=== PATIENT | male | born 1975 | race African-American/Black ===

== ENCOUNTER 2017-08-02 05:49 | Inpatient (IN) | payer OTHER ==
[2017-08-02] MEDS ORDERED: ASPIRIN PO ONE (06:04)
[2017-08-02 06:36] LABS: Basophils # (Auto) 0.1 K/mm3 (0.0-0.1); Basophils % (Auto) 0.8 % (0.0-1.8); Eosinophils # (Auto) 0.1 K/mm3 (0.0-0.4); Eosinophils % (Auto) 1.7 % (0.0-4.3); Hematocrit 43.1 % (35.5-45.6); Hemoglobin 14.5 gm/dl (11.8-15.2); Lymphocytes # (Auto) 1.7 K/mm3 (1.2-5.4); Lymphocytes % (Auto) 19.3 % (13.4-35.0); Mean Corpuscular HGB Conc 34 % (32-34); Mean Corpuscular Hemoglobin 32 pg (28-32); Mean Corpuscular Volume 94 fl (84-94); Monocytes # (Auto) 0.5 K/mm3 (0.0-0.8); Red Blood Count 4.58 M/mm3 (3.65-5.03)
[2017-08-02 06:42] LABS: Platelet Count 229 K/mm3 (140-440)
[2017-08-02 06:48] LABS: BUN/Creatinine Ratio 25; Blood Urea Nitrogen 15 mg/dL (9-20); Calcium 8.6 mg/dL (8.4-10.2); Hemolysis Index 276
[2017-08-02] MEDS ORDERED: PEPCID IV ONE (07:00)
[2017-08-02] MEDS ORDERED: NITRO-BID 2% TP ONE (07:00)
[2017-08-02] MEDS ORDERED: ZOFRAN IV ONE (07:00)
[2017-08-02] MEDS ORDERED: MORPHINE IV ONE (07:00)
--- NOTE | 2017-08-02 07:14 | XRay Report ---
FINAL REPORT EXAM: XR CHEST 1V AP HISTORY: cp TECHNIQUE: A portable upright view the chest was submitted. FINDINGS: Heart size and mediastinum appear normal. The lungs are clear. Pleural fluid is not seen. There are EKG leads overlying the chest wall. The bones and soft tissues otherwise appear well maintained. IMPRESSION: No active chest disease.
[2017-08-02 07:25] LABS: Chol/HDL Ratio 3.68 %; HDL Cholesterol 44 mg/dL (40-59); LDL Cholesterol,Direct 98 mg/dL (50-130)
--- NOTE | 2017-08-02 07:50 | Emergency Department Report ---
ED Chest Pain HPI - General Chief Complaint: Chest Pain Stated Complaint: CHEST PAIN Time Seen by Provider: 08/02/17 06:53 Source: patient, family, EMS Mode of arrival: Ambulatory Limitations: Language Barrier - History of Present Illness Initial Comments: 41-year-old male with a past medical history of elevated cholesterol and smoking history presents to the hospital complaints of chest pain. Midsternal chest pain described as something sitting on his chest, rate of 7/10 and has been intermittent since 2 AM. Pain woke him up acutely at 3:45 AM. Positive associated diaphoresis. Patient denies nausea, vomiting, or shortness of breath. Patient received aspirin and sublingual nitroglycerin in route to the hospital without improvement. Denies previous history of stress test. Severity scale (0 -10): 8 - Related Data Allergies Allergy/AdvReac Type Severity Reaction Status Date / Time No Known Allergies Allergy Unverified 08/02/17 05:58 Heart Score - HEART Score History: Slightly suspicious EKG: Non-specific Age: < 45 Risk factors: 1-2 risk factors Troponin: 1-3x normal limit HEART Score: 3 ED Review of Systems ROS: Stated complaint: CHEST PAIN Other details as noted in HPI Comment: All other systems reviewed and negative Other: Constitutional: No fevers chills Eyes: No eye pain visual changes ENT: No ear pain or throat pain Neck: Denies pain Respiratory: Denies cough wheezing shortness of breath Cardiovascular: Deniespalpitations, syncope GI: Denies abdominal pain : Denies dysuria Musculoskeletal: Denies back pain, joint swelling Skin: Denies rash, lesions, erythema Neurologic: Denies headache, numbness, weakness Psychiatric: Denies suicidal ideation, hallucinations ED Past Medical Hx - Past Medical History Previous Medical History?: Yes Additional medical history: High Cholesterol - Surgical History Past Surgical History?: No - Social History Smoking Status: Never Smoker Substance Use Type: Prescribed ED Physical Exam - General Limitations: Language Barrier - Other Other exam information: General: No limitations, patient is alert in no acute distress Head exam: Atraumatic, normocephalic Eyes exam: Normal appearance ENT: Moist mucous membrane, normal oropharynx Neck exam: Normal inspection, full range of motion, no meningismus nontender Respiratory exam: Clear to auscultation bilateral, no wheezes, rales, crackles Cardiovascular: Normal rate and rhythm, normal heart sounds. Chest wall nontender Abdomen: Soft, nondistended, and nontender, with normal bowel sounds, no rebound, or guarding Extremity: Full range of motion normal inspection no deformity, no calf tenderness or edema Back: Normal Inspection, full range of motion, no tenderness Neurologic: Alert, oriented x3, cranial nerves intact, no motor or sensory deficit Psychiatric: normal affect, normal mood Skin: Warm, dry, intact ED Course Vital Signs 08/02/17 08/02/17 08/02/17 06:04 06:14 06:15 Temperature 97.9 F Pulse Rate 78 72 Respiratory 15 18 Rate Blood Pressure O2 Sat by Pulse 100 Oximetry 08/02/17 08/02/17 06:30 06:41 Temperature Pulse Rate 69 71 Respiratory 18 15 Rate Blood Pressure 140/93 140/93 O2 Sat by Pulse 100 100 Oximetry - Reevaluation(s) Reevaluation #1: 08/02/17 07:53 Patient treated in the ED with nitroglycerin, morphine, and Zofran PEACE score - Peace Score Age > 65: (0) No Aspirin use within the Past 7 Days: (0) No 3 or more CAD Risk Factors: (1) Yes 2 or more Angina events in past 24 hrs: (1) Yes Known CAD with more than 50% Stenosis: (0) No Elevated Cardiac Markers: (1) Yes ED Medical Decision Making - Lab Data Result diagrams: 08/02/17 06:22 08/02/17 06:22 Lab Results 08/02/17 08/02/17 Range/Units 06:22 06:22 WBC 8.9 (4.5-11.0) K/mm3 RBC 4.58 (3.65-5.03) M/mm3 Hgb 14.5 (11.8-15.2) gm/dl Hct 43.1 (35.5-45.6) % MCV 94 (84-94) fl MCH 32 (28-32) pg MCHC 34 (32-34) % RDW 14.0 (13.2-15.2) % Plt Count 229 (140-440) K/mm3 Lymph % (Auto) 19.3 (13.4-35.0) % [place] % (Auto) 6.0 (0.0-7.3) % Eos % (Auto) 1.7 (0.0-4.3) % Baso % (Auto) 0.8 (0.0-1.8) % Lymph # 1.7 (1.2-5.4) K/mm3 [place] # 0.5 (0.0-0.8) K/mm3 Eos # 0.1 (0.0-0.4) K/mm3 Baso # 0.1 (0.0-0.1) K/mm3 Seg Neutrophils % 72.2 H (40.0-70.0) % Seg Neutrophils # 6.4 (1.8-7.7) K/mm3 Sodium 138 (137-145) mmol/L Potassium 5.6 H (3.6-5.0) mmol/L Chloride 100.9 (98-107) mmol/L Carbon Dioxide 21 L (22-30) mmol/L Anion Gap 22 mmol/L BUN 15 (9-20) mg/dL Creatinine 0.6 L (0.8-1.5) mg/dL Estimated GFR > 60 ml/min BUN/Creatinine Ratio 25 % Glucose 145 H (75-100) mg/dL Calcium 8.6 (8.4-10.2) mg/dL Troponin T 0.031 H (0.00-0.029) ng/mL Triglycerides 103 (2-149) mg/dL Cholesterol 162 (50-199) mg/dL LDL Cholesterol Direct 98 (50-130) mg/dL HDL Cholesterol 44 (40-59) mg/dL Cholesterol/HDL Ratio 3.68 % - EKG Data -: EKG Interpreted by [place] EKG shows normal: sinus rhythm, axis (64), QRS complexes (80), ST-T waves (Q waves anterior peaked T waves elevation without reciprocal change) Rate: normal - EKG Data When compared to previous EKG there are: previous EKG unavailable - Radiology Data Radiology results: report reviewed (cxr read by radiology: alicia) - Medical Decision Making Plan to admit patient to hospital for cardiac workup. Patient is slight troponin elevation and cardiac risk factors with no previous history of CAD workup Patient's potassium 5.6 but hemolyzed. Repeat pending. Hospitalist informed for admission - Differential Diagnosis [place], unstable angina PE, atypical chest pain, GERD Critical Care Time: No Critical care attestation.: If time is entered above; I have spent that time in minutes in the direct care of this critically ill patient, excluding procedure time. ED Disposition Clinical Impression: Chest pain, Elevated troponin, Smoker Disposition: -09 OP ADMIT IP TO THIS HOSP Is pt being admited?: Yes Condition: Stable Time of Disposition: 07:57 ([place]/hospitalist)
[2017-08-02] MEDS ORDERED: KIONEX PR ONE (08:00)
[2017-08-02] MEDS ORDERED: BABY ASPIRIN PO STA (08:15)
--- NOTE | 2017-08-02 08:53 | Consultation ---
History of Present Illness Consult date: 08/02/17 Requesting physician: KAILEY REMY Consult reason: chest pain History of present illness: The patient is a 41 year old male with a history of hyperlipidemia and tobacco abuse who presented with complaints of substernal chest pressure that started this morning around 2 am. He states the pain has been waxing and waning since that time, currently 7/10. Associated with diaphoresis. No shortness of breath, nausea or vomiting. First troponin is 0.031. No previous ischemic evaluation. Past History Past Medical History: hyperlipidemia Past Surgical History: No surgical history Social history: , smoking (1/2 PPD). denies: alcohol abuse, prescription drug abuse Family history: no significant family history Medications and Allergies Allergies Allergy/AdvReac Type Severity Reaction Status Date / Time No Known Allergies Allergy Unverified 08/02/17 05:58 Active Meds: Active Medications Aspirin (Baby Aspirin) 81 mg PO QDAY AJAY Atorvastatin Calcium (Lipitor) 40 mg PO QHS AJAY Heparin Sodium (Porcine) (Heparin 10,000 Units/10 Ml) 3,000 unit 60 unit/kg ( 3000 unit) IV ONCE ONE Stop: 08/02/17 08:49 Sodium Chloride (Nacl 0.9% 500 Ml) 500 mls @ 50 mls/hr IV DIRECT AJAY Stop: 08/02/17 18:59 Heparin Sodium/Sodium Chloride (Heparin/ 0.45% Nacl-25,000 Unit/500 Ml) 25,000 unit in 500 mls @ 15.105 mls/hr IV TITRATE AJAY; 15 UNITS/KG/HR PRN Reason: Protocol Nitroglycerin/Dextrose (Tridil Drip 50mg/250ml) 50 mg in 250 mls @ 3 mls/hr IV TITR AJAY; 10 MCG/MIN PRN Reason: Protocol Review of Systems Constitutional: no fever, no chills Ears, nose, mouth and throat: no nasal congestion, no nasal discharge, no sinus pressure Cardiovascular: chest pain, no orthopnea, no palpitations, no shortness of breath Respiratory: no cough, no congestion, no wheezing Gastrointestinal: no abdominal pain, no nausea, no vomiting, no diarrhea Genitourinary Male: no dysuria, no hematuria Musculoskeletal: no neck stiffness, no neck pain Integumentary: no rash, no pruritis Neurological: no parathesias, no numbness, no tingling, no headaches Endocrine: no cold intolerance, no heat intolerance Hematologic/Lymphatic: no easy bruising, no easy bleeding Allergic/Immunologic: no urticaria, no wheezing Physical Examination Last Vital Signs Temp 97.9 F 08/02/17 06:04 Pulse 80 08/02/17 08:01 Resp 14 08/02/17 08:00 BP 119/82 08/02/17 08:01 Pulse Ox 100 08/02/17 06:41 General appearance: mild distress HEENT: Positive: PERRL, Normocephaly, Mucus Membranes Moist Neck: Positive: neck supple, trachea midline Cardiac: Positive: Reg Rate and Rhythm, S1/S2 Lungs: Positive: clear to auscultation Neuro: Positive: Grossly Intact Abdomen: Positive: Soft, Active Bowel Sounds. Negative: Tender Skin: Positive: Clear. Negative: Rash Extremities: Present: normal. Absent: edema Results 08/02/17 09:14 08/02/17 07:58 Lipids 08/02/17 Range/Units 06:22 Triglycerides 103 (2-149) mg/dL Cholesterol 162 (50-199) mg/dL HDL Cholesterol 44 (40-59) mg/dL Cholesterol/HDL Ratio 3.68 % CBC 08/02/17 Range/Units 06:22 WBC 8.9 (4.5-11.0) K/mm3 RBC 4.58 (3.65-5.03) M/mm3 Hgb 14.5 (11.8-15.2) gm/dl Hct 43.1 (35.5-45.6) % Plt Count 229 (140-440) K/mm3 Lymph # 1.7 (1.2-5.4) K/mm3 [place] # 0.5 (0.0-0.8) K/mm3 Eos # 0.1 (0.0-0.4) K/mm3 Baso # 0.1 (0.0-0.1) K/mm3 Comprehensive Metabolic Panel 08/02/17 08/02/17 Range/Units 06:22 07:58 Sodium 138 (137-145) mmol/L Potassium 5.6 H 4.0 D (3.6-5.0) mmol/L Chloride 100.9 (98-107) mmol/L Carbon Dioxide 21 L (22-30) mmol/L BUN 15 (9-20) mg/dL Creatinine 0.6 L (0.8-1.5) mg/dL Glucose 145 H (75-100) mg/dL Calcium 8.6 (8.4-10.2) mg/dL - Imaging and Cardiology EKG: image reviewed EKG interpretations - Telemetry EKG Rhythm: Sinus Rhythm - EKG Sinus rhythms and dysrhythmias: sinus rhythm Myocardial infarction: anterior WA (acute or rec, anterior WA (old age or i Assessment and Plan Assessment: NSTEMI Hyperlipidemia Tobacco abuse Plan: Initiate heparin and nitro gtts. Will proceed with [facility] this morning. Risks, benefits and alternatives were discussed with the patient who agrees to proceed. The patient has been seen in conjunction with Dr. Clark who agrees with the assessment and plan of care.
[2017-08-02] MEDS ORDERED: TRIDIL DRIP 50MG/250ML 50 MG/250 ML BOTTLE IV SCH (09:00)
[2017-08-02] MEDS ORDERED: HEPARIN ONE (09:01)
[2017-08-02 09:31] LABS: Hematocrit 45.5 % (35.5-45.6)
[2017-08-02] MEDS ORDERED: NACL 0.9% 1000 ML 1,000 ML ONE (09:42)
[2017-08-02 09:44] LABS: INR 0.91 (0.87-1.13)
[2017-08-02 09:45] LABS: Partial Thromboplastin Time 40.5 Sec. (24.2-36.6)
[2017-08-02] MEDS ORDERED: XYLOCAINE 2% INFILTRATI ONE (09:58)
[2017-08-02] MEDS ORDERED: HEPARIN/NS 5000 UNIT/500ML(CATH LAB) 1,000 ML IR ONE (09:58)
[2017-08-02] MEDS ORDERED: CALAN ONE (09:58)
[2017-08-02] MEDS ORDERED: NITROGLYCERIN SYRINGE 0 ML ONE (09:58)
[2017-08-02] MEDS ORDERED: SUBLIMAZE ONE (09:59)
[2017-08-02] MEDS ORDERED: VERSED ONE (09:59)
[2017-08-02] MEDS ORDERED: NACL 0.9% 500 ML 500 ML IV SCH (10:30)
[2017-08-02] MEDS: HEPARIN/ 0.45% NACL-25,000 UNIT/500 ML 25,000 UNIT/500 ML BAG IV SCH (10:30)
[2017-08-02] MEDS ORDERED: HEPARIN 10,000 UNITS/10 ML IV ONE (10:30)
--- NOTE | 2017-08-02 12:01 | Cardiac Catherization Report ---
LEFT HEART CATHETERIZATION CLINICAL INFORMATION: The patient is a 41-year-old [place] gentleman with history of hyperlipidemia with no history of hypertension or diabetes mellitus. Started having chest pain last night around 2:00, he presented to the Emergency Room this morning and EKG showed some ST-T changes in the anterior leads consistent with ischemia versus injury. The patient was started on IV heparin and IV nitroglycerin and the chest pain improved. Because of his intermittent chest pain of many hours duration, he was taken to the catheterization laboratory on an urgent basis. The patient is pain free at the time of presentation to the catheterization laboratory. He is on IV nitroglycerin and IV heparin. The patient's blood pressure has been stable with blood pressure of 118/75 with heart rate of 80 beats per minute, sinus rhythm. I explained to the patient about the procedure, potential complications, and alternatives of therapy available. DESCRIPTION OF PROCEDURE: The patient is willing to proceed with coronary angiography and intervention if indicated. The patient was brought to the catheterization laboratory in a fasting condition. The right wrist area and forearm thoroughly cleansed with Betadine solution. Sterile drapes were applied. Local anesthesia was achieved using 2% Xylocaine. Right radial artery puncture was made using 21-gauge arterial puncture needle. Subsequently, a 5-Jordanian sheath was introduced. A 5-Jordanian multipurpose catheter was used to obtain the angiograms of the left coronary artery, right coronary artery and left ventriculogram done in MONSON projection in multiple views. At the end of the procedure, catheter and sheath were removed. The patient was noted to have significant LV dysfunction and triple vessel disease. Considering the above angiographic picture, would recommend aortocoronary bypass surgery. At the end of the procedure, the patient is pain free, vital signs have been stable. No untoward complications were noted. Following findings were noted. HEMODYNAMICS: 1. Aortic pressure 118/75, left ventricular pressure 116/23. No gradient across the aortic valve. Estimated ejection fraction of 30%-35%. 2. Left ventriculogram done in MONSON projection showed almost akinesis of the distal half of the anterior wall and apex. Vessels parts are moving normally. Ejection fraction 30%-35%. No significant mitral regurgitation noted. 3. Left coronary artery arises normally from left coronary cusp, left main without significant disease. LAD in the mid part showed very tight 95%-98% lesion extending into the diagonal branch, which is a fairly large vessel. Distal LAD curves around the apex and diagonal branch fairly large without significant disease. Circumflex artery represented by a large marginal branch shows 80% long lesion which bifurcates into two marginal branches. Circumflex artery and the AV groove without significant disease. Distal to the above-mentioned marginal lesion, these vessels are medium sized and bypassable. 4. Right coronary artery dominant vessel shows mild disease proximally and PDA which is greatly large vessel shows 80%-90% focal ostial lesion. PDA without significant disease. FINAL IMPRESSION: Left ventricular dysfunction, ejection fraction 30%-35% with anterior wall and apical almost akinesis along with triple vessel disease involving the bifurcation lesion of the mid LAD diagonal and also bifurcation lesion of the marginal branch, which are bypassable and large PDA is also bypassable.Considering he is chest pain free, we would continue medical therapy and we will arrange for aortic coronary bypass surgery as soon as possible. Discussed with the patient who belongs to [place] and we will check with the [place] to arrange for bypass surgery. No untoward complications were noted. He will be continued on IV nitroglycerin and IV heparin. JOB# [id number] PRISCA/JO-ANN PALM
--- NOTE | 2017-08-02 12:18 | History and Physical Report ---
History of Present Illness Date of examination: 08/02/17 Chief complaint: Chest pain History of present illness: 41-year-old male with past medical history significant for hyperlipidemia presented to the emergency department complaining of substernal chest pain that started around 1 AM this morning. Patient couldn't characterize the pain but he said it hurts, 10 out of 10 in intensity, come and goes, associated with sweating, no radiation, no alleviating or aggravating factors identified. Patient denied any shortness of breath, palpitation, leg swelling, nausea, vomiting. Patient is smoker and family history of heart attack [Father]. REVIEW OF SYSTEMS: GENERAL: no weight change, no fatigue, no fever HEAD: no head ache EYES: no blurry vision, no acute visual loss EARS: no hearing loss, no discharge, no earache NOSE: no stuffiness, no sneezing, no discharge MOUTH, THROAT AND NECK: no bleeding gums, no sore throat, no swollen neck CARDIAC: As stated in the HPI. RESPIRATORY: no shortness of breath, no wheeze, no cough, no sputum, no hemoptysis, no asthma GI: no decreased appetite, no nausea, no vomiting, no dysphagia, no diarrhea, no constipation, no abdominal pain URINARY: no change in frequency, no urgency, no polyuria, no hematuria, no incontinence MUSCULOSKELETAL: no muscle weakness, no pain, no joint stiffness NEUROLOGIC: no loss of sensation/numbness, no tingling, no tremors, no weakness/ paralysis HEMATOLOGIC: no anemia, no easy bruising SKIN: no rashes ENDOCRINE: no heat/cold intolerance, no polyuria, no polydipsia, no thyroid problems, no diabetes PSYCHIATRIC: no anxiety, no depression, no suicidal ideations Past History Past Medical History: hyperlipidemia Past Surgical History: No surgical history Social history: , smoking (1/2 PPD). denies: alcohol abuse, prescription drug abuse Family history: no significant family history Medications and Allergies Allergies Allergy/AdvReac Type Severity Reaction Status Date / Time No Known Allergies Allergy Unverified 08/02/17 05:58 Active Meds: Active Medications Aspirin (Baby Aspirin) 81 mg PO QDAY AJAY Atorvastatin Calcium (Lipitor) 40 mg PO QHS AJAY Sodium Chloride (Nacl 0.9% 500 Ml) 500 mls @ 50 mls/hr IV DIRECT AJAY Stop: 08/02/17 20:29 Heparin Sodium/Sodium Chloride (Heparin/ 0.45% Nacl-25,000 Unit/500 Ml) 25,000 unit in 500 mls @ 15 mls/hr IV TITRATE AJAY; 750 UNITS/HR PRN Reason: Protocol Last Admin: 08/02/17 10:30 Dose: 0 mls Nitroglycerin/Dextrose (Tridil Drip 50mg/250ml) 50 mg in 250 mls @ 3 mls/hr IV TITR AJAY; 10 MCG/MIN PRN Reason: Protocol Last Admin: 08/02/17 09:29 Dose: 10 mcg/min, 3 mls/hr Exam - Physical Exam Narrative exam: Not in cardiopulmonary distress. The patient appeared well nourished and normally developed. Vital signs as documented. Head exam is unremarkable. No scleral icterus . Neck is without jugular venous distension, thyromegaly, or carotid bruits. Lungs are clear to auscultation. Cardiac exam reveals regular rate and Rhythm. First and second heart sounds normal. No murmurs, rubs or gallops. Abdominal exam reveals normal bowel sounds, no masses, no organomegaly and no aortic enlargement. Extremities are nonedematous and both femoral and pedal pulses are normal. HEADER DOCK: Alert and oriented 3. No focal weakness. - Constitutional Vitals: Temp Pulse Resp BP Pulse Ox 98.3 F 82 20 105/63 99 08/02/17 10:48 08/02/17 11:15 08/02/17 11:15 08/02/17 11:15 08/02/17 11:15 Results - Labs CBC & Chem 7: 08/02/17 09:14 08/02/17 07:58 Labs: Laboratory Last Values WBC 8.9 K/mm3 (4.5-11.0) 08/02/17 06:22 RBC 4.58 M/mm3 (3.65-5.03) 08/02/17 06:22 Hgb 15.0 gm/dl (11.8-15.2) 08/02/17 09:14 Hct 45.5 % (35.5-45.6) 08/02/17 09:14 MCV 94 fl (84-94) 08/02/17 06:22 MCH 32 pg (28-32) 08/02/17 06:22 MCHC 34 % (32-34) 08/02/17 06:22 RDW 14.0 % (13.2-15.2) 08/02/17 06:22 Plt Count 262 K/mm3 (140-440) 08/02/17 09:14 Lymph % (Auto) 19.3 % (13.4-35.0) 08/02/17 06:22 [place] % (Auto) 6.0 % (0.0-7.3) 08/02/17 06:22 Eos % (Auto) 1.7 % (0.0-4.3) 08/02/17 06:22 Baso % (Auto) 0.8 % (0.0-1.8) 08/02/17 06:22 Lymph # 1.7 K/mm3 (1.2-5.4) 08/02/17 06:22 [place] # 0.5 K/mm3 (0.0-0.8) 08/02/17 06:22 Eos # 0.1 K/mm3 (0.0-0.4) 08/02/17 06:22 Baso # 0.1 K/mm3 (0.0-0.1) 08/02/17 06:22 Seg Neutrophils % 72.2 % (40.0-70.0) H 08/02/17 06:22 Seg Neutrophils # 6.4 K/mm3 (1.8-7.7) 08/02/17 06:22 PT 12.7 Sec. (12.2-14.9) 08/02/17 09:14 INR 0.91 (0.87-1.13) 08/02/17 09:14 APTT 40.5 Sec. (24.2-36.6) H 08/02/17 09:14 Sodium 138 mmol/L (137-145) 08/02/17 06:22 Potassium 4.0 mmol/L (3.6-5.0) D 08/02/17 07:58 Chloride 100.9 mmol/L (98-107) 08/02/17 06:22 Carbon Dioxide 21 mmol/L (22-30) L 08/02/17 06:22 Anion Gap 22 mmol/L 08/02/17 06:22 BUN 15 mg/dL (9-20) 08/02/17 06:22 Creatinine 0.6 mg/dL (0.8-1.5) L 08/02/17 06:22 Estimated GFR > 60 ml/min 08/02/17 06:22 BUN/Creatinine Ratio 25 % 08/02/17 06:22 Glucose 145 mg/dL (75-100) H 08/02/17 06:22 Calcium 8.6 mg/dL (8.4-10.2) 08/02/17 06:22 Troponin T 0.255 ng/mL (0.00-0.029) H* D 08/02/17 09:14 Triglycerides 103 mg/dL (2-149) 08/02/17 06:22 Cholesterol 162 mg/dL (50-199) 08/02/17 06:22 LDL Cholesterol Direct 98 mg/dL (50-130) 08/02/17 06:22 HDL Cholesterol 44 mg/dL (40-59) 08/02/17 06:22 Cholesterol/HDL Ratio 3.68 % 08/02/17 06:22 Assessment and Plan Assessment and plan: ACS, NSTEMI - elevated cardiac enzymes - Cardiac cath showed triple vessel disease, with left ventricular dysfunction EF of 30-35% - Patient is on aspirin, heparin drip - Patient is going to be transferred to [facility], accepted by Dr. Mike Burton Tobacco abuse - Counselled about cessation of smoking Hyperlipidemia - Continue the study Disposition - will be transferred out to [facility] - Cardiology arranged the transfer VTE prophylaxis?: Chemical Plan of care discussed with patient/family: Yes
--- NOTE | 2017-08-02 12:21 | Discharge Summary ---
Providers - Providers Date of discharge: 08/02/17 Attending physician: DENISSE BHANDARI 08/02/17 Consult to Cardiac Rehabilitation [CONS] Routine Reason For Exam: Phase 1 08/02/17 07:55 Consult to Cardiology [CONS] Routine Consulting Provider: GENIE HECK Reason For Exam: NSTEMI Primary care physician: ABDOUL PARKER Hospitalization Reason for admission: NSTEMI, triple-vessel disease, left ventricular dysfunction Condition: Stable Procedures: cardiac cath: showed triple vessel disease, left ventricular dysfunction. Hospital course: 41-year-old male with past medical history significant for hyperlipidemia presented to the emergency department complaining of substernal chest pain that started around 1 AM this morning. Patient couldn't characterize the pain but he said it hurts, 10 out of 10 in intensity, come and goes, associated with sweating, no radiation, no alleviating or aggravating factors identified. Patient denied any shortness of breath, palpitation, leg swelling, nausea, vomiting. Patient is smoker and family history of heart attack [Father]. Cardiac cath was done and showed triple-vessel disease with left ventricular dysfunction. Patient was put on heparin, aspirin, statin and cardiology arranged to transfer the patient [facility] and accepted by Dr Mike Burton. Patient is hemodynamically stable for transfer. Disposition: [id number][facility]TX-[id number] Time spent for discharge: 31 minutes - Discharge Diagnoses (1) NSTEMI (non-ST elevated myocardial infarction) Status: Acute (2) Triple vessel coronary artery disease Status: Acute (3) Smoker Status: Acute Core Measure Documentation - Palliative Care Palliative Care/ Comfort Measures: Not Applicable - Core Measures Any of the following diagnoses?: heart failure - Acute OR Discharge Requirements Aspirin at discharge: Yes ARIADNE/ARB for LVSD if EF <40%: No Reason for no ARIADNE/ARB: Hypotension Reason for no beta arias on DC: Hypotension Statin for LDL = or >100 mg/dl on DC: Yes - Heart Failure Discharge Requirements ARIADNE/ARB for LVSD if EF <40%: No Reason for no ARIADNE/ARB: Hypotension (BP is marginal, and patient is going to be transferred out) Beta arias at discharge: Yes Exam - Physical Exam Narrative exam: Not in cardiopulmonary distress. The patient appeared well nourished and normally developed. Vital signs as documented. Head exam is unremarkable. No scleral icterus . Neck is without jugular venous distension, thyromegaly, or carotid bruits. Lungs are clear to auscultation. Cardiac exam reveals regular rate and Rhythm. First and second heart sounds normal. No murmurs, rubs or gallops. Abdominal exam reveals normal bowel sounds, no masses, no organomegaly and no aortic enlargement. Extremities are nonedematous and both femoral and pedal pulses are normal. [employer]: Alert and oriented 3. No focal weakness. - Constitutional Vitals: Temp Pulse Resp BP Pulse Ox 98.3 F 82 20 105/63 99 08/02/17 10:48 08/02/17 11:15 08/02/17 11:15 08/02/17 11:15 08/02/17 11:15 Plan Activity: no restrictions Weight Bearing Status: Full Weight Bearing Diet: low fat, low cholesterol Follow up with: ABDOUL PARKER MD [Primary Care Provider] - 7 Days
--- NOTE | 2017-08-02 14:16 | Event Note ---
Date: 08/02/17 Cath revealed triple vessel disease, EF 30%. Patient will be transferred to [facility] under the care of Dr. Mike Burton for CABG.
[2017-08-02 16:54] LABS: Creatine Kinase MB 217.9 ng/mL (0.0-4.0)
[2017-08-02] MEDS ORDERED: NACL 0.9% 500 ML 500 ML ONE (19:59)
[2017-08-03] MEDS ORDERED: BABY ASPIRIN PO SCH (10:00)
[2017-08-03] MEDS ORDERED: NACL 0.9% 1000 ML 1,000 ML ONE (10:51)
[2017-08-03] MEDS ORDERED: NACL 0.9% 1000 ML 1,000 ML IV SCH (11:00)
--- NOTE | 2017-08-03 11:27 | Progress Note ---
Assessment and Plan Assessment: NSTEMI Triple vessel CAD Cardiomyopathy EF 30-35% Hyperlipidemia Tobacco abuse Plan: Continue nitro and heparin gtts. Patient remains chest pain free. Awaiting transfer to [facility] under the care of Dr. Mike Burton. The patient has been seen in conjunction with Dr. Rincon who agrees with the assessment and plan of care. Subjective Date of service: 08/03/17 Principal diagnosis: NSTEMI, triple vessel CAD Interval history: Patient remains in mill laborer recovery area, awaiting bed at [facility]. No chest pain or shortness of breath. Objective Last Vital Signs Temp 98.7 F 08/03/17 04:00 Pulse 76 08/03/17 10:00 Resp 17 08/03/17 10:00 BP 96/60 08/03/17 10:00 Pulse Ox 100 08/03/17 10:00 - Physical Examination General: No Apparent Distress HEENT: Positive: PERRL, Normocephaly, Mucus Membranes Moist Neck: Positive: neck supple, trachea midline Cardiac: Positive: Reg Rate and Rhythm, S1/S2 Lungs: Positive: clear to auscultation Neuro: Positive: Grossly Intact Abdomen: Positive: Soft, Active Bowel Sounds. Negative: Tender Skin: Positive: Clear. Negative: Rash Extremities: Present: normal. Absent: edema - Labs and Meds Cardiac Enzymes 08/02/17 Range/Units 16:30 CK-MB (CK-2) 217.9 H (0.0-4.0) ng/mL - Imaging and Cardiology EKG: image reviewed - Telemetry EKG Rhythm: Sinus Rhythm - EKG Sinus rhythms and dysrhythmias: sinus rhythm Myocardial infarction: anterior [place] (acute or rec, anterior [place] (old age or i
[2017-08-03 12:03] VITALS: BP 95/62
[2017-08-03] MEDS ORDERED: HEPARIN/ 0.45% NACL-25,000 UNIT/500 ML 0 UNIT/0 ML BAG ONE (13:08)
[2017-08-03] MEDS: HEPARIN/ 0.45% NACL-25,000 UNIT/500 ML 25,000 UNIT/500 ML BAG IV SCH (13:14)
--- NOTE | 2017-08-03 13:43 | Progress Note ---
Assessment and Plan Assessment and plan: ACS, NSTEMI - elevated cardiac enzymes - Cardiac cath showed triple vessel disease, with left ventricular dysfunction EF of 30-35% - Patient is on aspirin, heparin drip - Patient is going to be transferred to [facility], accepted by Dr. Mike Burton Tobacco abuse - Counselled about cessation of smoking Hyperlipidemia - Continue the statin. Disposition -Pending transfer to [facility]. - Patient Problems (1) NSTEMI (non-ST elevated myocardial infarction) Current Visit: Yes Status: Acute (2) Triple vessel coronary artery disease Current Visit: Yes Status: Acute (3) Smoker Current Visit: Yes Status: Acute History Interval history: Patient was seen and evaluated this morning, patient is chest pain-free. Hospitalist Physical - Physical exam Narrative exam: Not in cardiopulmonary distress. The patient appeared well nourished and normally developed. Vital signs as documented. Head exam is unremarkable. No scleral icterus . Neck is without jugular venous distension, thyromegaly, or carotid bruits. Lungs are clear to auscultation. Cardiac exam reveals regular rate and Rhythm. First and second heart sounds normal. No murmurs, rubs or gallops. Abdominal exam reveals normal bowel sounds, no masses, no organomegaly and no aortic enlargement. Extremities are nonedematous and both femoral and pedal pulses are normal. PSYCHIATRIC CLINICIAN: Alert and oriented 3. No focal weakness. - Constitutional Vitals: Temp Pulse Resp BP Pulse Ox 98.7 F 75 17 95/62 100 08/03/17 04:00 08/03/17 12:00 08/03/17 12:00 08/03/17 12:00 08/03/17 12:00 General appearance: Present: mild distress Results - Labs CBC & Chem 7: 08/02/17 09:14 08/02/17 07:58 Labs: Laboratory Last Values WBC 8.9 K/mm3 (4.5-11.0) 08/02/17 06:22 RBC 4.58 M/mm3 (3.65-5.03) 08/02/17 06:22 Hgb 15.0 gm/dl (11.8-15.2) 08/02/17 09:14 Hct 45.5 % (35.5-45.6) 08/02/17 09:14 MCV 94 fl (84-94) 08/02/17 06:22 MCH 32 pg (28-32) 08/02/17 06:22 MCHC 34 % (32-34) 08/02/17 06:22 RDW 14.0 % (13.2-15.2) 08/02/17 06:22 Plt Count 262 K/mm3 (140-440) 08/02/17 09:14 Lymph % (Auto) 19.3 % (13.4-35.0) 08/02/17 06:22 Frio % (Auto) 6.0 % (0.0-7.3) 08/02/17 06:22 Eos % (Auto) 1.7 % (0.0-4.3) 08/02/17 06:22 Baso % (Auto) 0.8 % (0.0-1.8) 08/02/17 06:22 Lymph # 1.7 K/mm3 (1.2-5.4) 08/02/17 06:22 Frio # 0.5 K/mm3 (0.0-0.8) 08/02/17 06:22 Eos # 0.1 K/mm3 (0.0-0.4) 08/02/17 06:22 Baso # 0.1 K/mm3 (0.0-0.1) 08/02/17 06:22 Seg Neutrophils % 72.2 % (40.0-70.0) H 08/02/17 06:22 Seg Neutrophils # 6.4 K/mm3 (1.8-7.7) 08/02/17 06:22 PT 12.7 Sec. (12.2-14.9) 08/02/17 09:14 INR 0.91 (0.87-1.13) 08/02/17 09:14 APTT 40.5 Sec. (24.2-36.6) H 08/02/17 09:14 Heparin Anti-Xa Level 0.82 U.I./ml (0.3-0.7) H 08/03/17 04:55 Sodium 138 mmol/L (137-145) 08/02/17 06:22 Potassium 4.0 mmol/L (3.6-5.0) D 08/02/17 07:58 Chloride 100.9 mmol/L (98-107) 08/02/17 06:22 Carbon Dioxide 21 mmol/L (22-30) L 08/02/17 06:22 Anion Gap 22 mmol/L 08/02/17 06:22 BUN 15 mg/dL (9-20) 08/02/17 06:22 Creatinine 0.6 mg/dL (0.8-1.5) L 08/02/17 06:22 Estimated GFR > 60 ml/min 08/02/17 06:22 BUN/Creatinine Ratio 25 % 08/02/17 06:22 Glucose 145 mg/dL (75-100) H 08/02/17 06:22 Calcium 8.6 mg/dL (8.4-10.2) 08/02/17 06:22 Total Creatine Kinase 2526 units/L (55-170) H 08/02/17 16:30 CK-MB (CK-2) 217.9 ng/mL (0.0-4.0) H 08/02/17 16:30 CK-MB (CK-2) Rel Index 8.6 (0-4) H 08/02/17 16:30 Troponin T 3.650 ng/mL (0.00-0.029) H* D 08/02/17 16:30 Triglycerides 103 mg/dL (2-149) 08/02/17 06:22 Cholesterol 162 mg/dL (50-199) 08/02/17 06:22 LDL Cholesterol Direct 98 mg/dL (50-130) 08/02/17 06:22 HDL Cholesterol 44 mg/dL (40-59) 08/02/17 06:22 Cholesterol/HDL Ratio 3.68 % 08/02/17 06:22
== END 2017-08-03 13:45 | disposition critical access hospital (66) | DRG 282 ==
LOC: ED 05:49 → 4A 07:59 → UNDOADMIN 07:59 → CATH 09:36 → 4A 18:11
PROVIDERS: ADMIT Internal Medicine; ATTEND Internal Medicine
PROC: 4A023N7 Measurement of Cardiac Sampling and Pressure, Left Heart, Percutaneous Approach (ICD-10-PCS; principal; 2017-08-02)
PROC: B2111ZZ Fluoroscopy of Multiple Coronary Arteries using Low Osmolar Contrast (ICD-10-PCS; 2017-08-02)
PROC: B2151ZZ Fluoroscopy of Left Heart using Low Osmolar Contrast (ICD-10-PCS; 2017-08-02)
DX: I21.4 Non-ST elevation (NSTEMI) myocardial infarction (principal); E78.00 Pure hypercholesterolemia, unspecified; E78.5 Hyperlipidemia, unspecified; F17.210 Nicotine dependence, cigarettes, uncomplicated; E11.9 Type 2 diabetes mellitus without complications; I25.10 Atherosclerotic heart disease of native coronary artery without angina pectoris; I24.9 Acute ischemic heart disease, unspecified; Z71.6 Tobacco abuse counseling; Z79.82 Long term (current) use of aspirin; Z82.49 Family history of ischemic heart disease and other diseases of the circulatory system
CPT/HCPCS: 36415; 71045; 80048; 80061; 82550; 82553; 84132; 84484; 85014; 85018; 85025; 85049; 85520; 85610; 85730; 93005; 93010; 93458; 96365; 96366; 96368; 96374; 96375; A9270-GY; C1894; J1644; J2250; J2270; J2405; J3010; J7030; J7040; Q9967